=== PATIENT | female | born 1995 | race American Indian/Alaskan Native ===

== ENCOUNTER 2018-06-28 20:47 | Outpatient (CLI) | payer OTHER ==
[2018-06-28 21:43] VITALS: BP 106/62
[2018-06-28] MEDS ORDERED: LACTATED RINGERS 1,000 ML IV ONE (22:24)
[2018-06-28] MEDS ORDERED: LACTATED RINGERS 1,000 ML ONE (22:25)
[2018-06-28 23:06] LABS: Amorphous Crystals,Urine Few; Bilirubin,Urine NEG (Negative); Blood,Urine NEG (Negative); Color,Urine Yellow (Yellow); Mucus,Urine FEW /HPF; Protein,Urine <15 mg/dL mg/dL (Negative); Urobilinogen,Urine < 2.0 mg/dL (<2.0)
== END 2018-06-28 23:57 | disposition home or self-care (01) ==
LOC: TRG 20:47 → LD 20:52 → TRG 23:57
PROVIDERS: ATTEND Obstetrics & Gynecology
DX: O47.03 False labor before 37 completed weeks of gestation, third trimester (principal); Z3A.31 31 weeks gestation of pregnancy; Z91.040 Latex allergy status
CPT/HCPCS: 81001; J7120; 59025; 96360